=== PATIENT | male | born 1955 | race Caucasian/White ===

== ENCOUNTER 2016-09-10 09:33 | Emergency (ER) | payer OTHER ==
[2016-09-10] MEDS ORDERED: PROTONIX 80 MG in NS 80 ML IV ONE (09:47)
[2016-09-10] MEDS ORDERED: ASPIRIN PO STA (09:48)
[2016-09-10] MEDS ORDERED: NS 1,000 ML IV ONE (09:49)
--- NOTE | 2016-09-10 09:57 | PROVIDER DOCUMENTATION ---
HPI-Chest Pain - General Source: patient - History of Present Illness-CP Location: reports: central Chest Pain Radiation: reports: no radiation Quality of Pain: reports: pressure Severity in ED: mild Onset/Duration: this morning Timing: still present Context/Activities at Onset: reports: light activity Modifying Factors: improves with: nothing Associated Symptoms: reports: diaphoresis, dizziness, fever/chills, nausea. denies: abdominal pain, back pain, edema, fatigue, headache, heartburn, rash, shortness of breath, swelling/lump in chest, syncope, vomiting, weakness Nitro Today/Relief: no nitro taken today Aspirin Treatment Today: no aspirin today Similar Symptoms Previously?: Yes Recently Seen Here or By Another Healthcare Provider: No <Vivian Van - Last Filed: 09/10/16 15:16> <Adebayo Maria - Last Filed: 09/10/16 15:32> - General Chief Complaint: Dizziness Stated Complaint: DIZZINESS, FEVER , CHEST PAIN, DARK STOOLS Time Seen by Provider: 09/10/16 09:46 Allergies/Adverse Reactions: Patient Allergies Allergy/AdvReac Type Severity Reaction Status Date / Time oxycodone AdvReac HEADACHE Verified 04/16/15 06:30 Home Medications: Home Medication List Medication Instructions Recorded Confirmed Last Taken Type LISINOpril [Prinivil] 20 mg PO DAILY 04/16/15 09/10/16 07/23/15 History Metformin [Glucophage] 500 mg PO DAILY 04/16/15 09/10/16 07/23/15 History Aspirin/Calcium Carbonate/Mag 325 mg PO HS 09/10/16 09/10/16 Unknown History [Aspirin Buffered 325 mg Tab] Meloxicam [Mobic] 15 mg PO DAILY 09/10/16 09/10/16 Unknown History - History of Present Illness-CP Nature of Presenting Problem: Pt is 61 y/o M presents to the ED with central chest pain. Pt states started this am. Pt states last night having F and chills. Pt states CP feels like something is sitting on his chest. Pt states having black tarry stool last night as well. Pt states N and dizziness this am. Pt denies SOB. Pt states feeling like his heart rates was elevated this am as well. (Vivian Van) Review of Systems - Adult - REVIEW OF SYSTEMS - ADULT Constitutional: reports: chills, fever Eyes: denies: blurred vision, double vision Ears, Nose, Mouth & Throat: denies: ear pain, nose pain, throat pain Cardiovascular: reports: chest pain (central), irregular heart rate (tachy). denies: heart murmur Respiratory: denies: cough, shortness of breath, wheezing Gastrointestinal: reports: nausea, other (dark stools). denies: abdominal pain , diarrhea, vomiting Genitourinary: denies: dysuria, hematuria Musculoskeletal: denies: bone pain, joint pain, neck pain Integumentary: denies: hives, itching Neurological: reports: dizziness/vertigo (dizziness). denies: headache/ migraines, syncope Psychiatric: denies: anxiety, depression Endocrine: reports: no symptoms reported Hematologic/Lymphatic: reports: no symptoms reported Allergic/Immunologic: reports: no symptoms reported All Other Systems: Reviewed and Negative <Vivian Van - Last Filed: 09/10/16 15:16> Past History - Adult - PAST MEDICAL HISTORY-ADULT Review of Records: reports: Nursing Assessment Review, Medications Reviewed, Social history reviewed & non-contributory. Major Childhood Illnesses: reports: denies history Cardiovascular: reports: cardiac disease, HTN Respiratory: reports: denies history Gastrointestinal: reports: other (explor lap for "Spot" on his intestines) Obstetrical/Gynecological: reports: denies history Genitourinary: reports: kidney stones Musculoskeletal: reports: denies history Neurological: reports: denies history Endocrine/Immune: reports: Diabetes Other Conditions: reports: denies history - PRIOR SURGERIES/PROCEDURES Surgical/Procedure History: reports: CABG, cholecystectomy, orthopedic ( extremity) (L shoulder ) - IMMUNIZATION STATUS Childhood Immunizations: See Nurse Assessment Flu Vaccine: See Nurse Assessment - FAMILY HISTORY Family History: reviewed, not pertinent - SOCIAL HISTORY Smoking: quit greater than 1 year, cigarettes Substance Use: alcohol Alcohol Use Frequency: occasionally Number of drinks per typical drinking period:: 2 drinks Living Situation: family <Vivian Van - Last Filed: 09/10/16 15:16> Physical Exam-General - PHYSICAL EXAM-ADULT Initial Vital Signs Reviewed: Yes - CONSTITUTIONAL General Appearance: appears well, alert, no apparent distress - EYES Eyes: pink conjunctivae - HEAD, EARS, NOSE, MOUTH & THROAT HENMT: normocephalic/atraumatic, moist mucous membranes, normal ENT inspection, TMs normal, pharynx normal - NECK Neck: non-tender, full range of motion, supple, normal inspection - RESPIRATORY Respiratory: chest non-tender, lungs clear, normal breath sounds, no pleuratic chest pain, no respiratory distress, no accessory muscle use - CARDIOVASCULAR Cardiovascular: normal peripheral pulses, no edema, no gallop, no JVD, no murmur , tachycardia - GASTROINTESTINAL (ABDOMEN) Abdominal Exam: normal bowel sounds, soft, no organomegaly, no pulsatile mass, tenderness (suprapubic and LLQ) - LYMPHATIC Lymphatic: no adenopathy - MUSCULOSKELETAL Back Exam: normal inspection, no CVA tenderness, no vertebral tenderness Extremity: normal range of motion, non-tender, no pedal edema, no calf tenderness - SKIN Integumentary: normal color, normal turgor, warm/dry - NEUROLOGIC Neurologic: grossly normal - PSYCHIATRIC Psych/Mental Status: normal mood/affect, oriented x 3 <Vivian Van - Last Filed: 09/10/16 15:16> Progress - REASSESSMENT Reassessment #1 Time Reassessed: 11:25 (Dr. Maria at bedside with Pt ) Status: improving (Pt states when he went to xray and stood up he became lightheaded.) Reassessment Comment: Pt states he is chest pain free at the moment - EKG 1 Time of EKG reading by physician:: 09:30 EKG Read and Signed by:: Adebayo Maria EKG Interpretation (*Must complete 3 of following elements*): Abnormal Rate: 111 Rhythm: sinus tachycardia Comments: left anterior fascicular block; septal infarct, age undetermined - XRAY 1 XRAY: Bilateral XRAY Study: Chest Impression: Normal XRAY Interpretation: nad - CONSULTS/PCP/HOSPITALIST Notification #1 *Consult/PCP/Hospitalist*: Dr. Cee Time Discussed: 15:16 (Dr. Cee accepted admit ) Reason/Comments: Dr. Maria consults with Dr. Cee about admit of Pt Consult Disposition: Admit <Vivian Van - Last Filed: 09/10/16 15:16> <Adebayo Maria - Last Filed: 09/10/16 15:32> - PLAN OF CARE/RESULTS Progress/Plan/Lab Results: Laboratory Tests 09/10/16 09:52 POC Glucose 142 H Orders Category Date Time Status Cardiac Monitoring DIRECTED Care 09/10/16 09:48 Active Oxygen Therapy- ED Nursing DIRECTED Care 09/10/16 09:48 Active Saline Loc NOW Care 09/10/16 09:48 Active CHEST-2 VIEWS [RAD] Stat Exams 09/10/16 09:48 Ordered CBC WITH ELECTRONIC DIFF [HEME] Stat Lab 09/10/16 09:48 Ordered CK PROFILE [SP CHEM] Stat Lab 09/10/16 09:48 Ordered COMPREHENSIVE METABOLIC PANEL [CHEM] Stat Lab 09/10/16 09:48 Ordered MAGNESIUM [CHEM] Stat Lab 09/10/16 09:48 Ordered PRO B-NATRIURETIC PEPTIDE Stat Lab 09/10/16 09:[address] Or[address]IME WITH INR PL [COAG] Stat Lab 09/10/16 09:[address] [COAG] Stat Lab 09/10/16 09:48 Ordered TROPONIN T Stat Lab 09/10/16 09:48 Ordered 0.9% Sodium Chloride Inj [Ns] 1,000 ml Med 09/10/16 09:49 Active IV 75 mls/hr Aspirin Med 09/10/16 09:48 Discontinued 325 mg PO STAT STA Pantoprazole [Protonix] 80 mg Med 09/10/16 09:47 Active 0.9% Sodium Chloride Inj [Ns] 80 ml IV NOW EKG [EKG] Stat Ther 09/10/16 09:48 Ordered Vital Signs - 24 hr 09/10/16 09/10/16 09:35 09:46 Pulse Rate 111 H 103 H Respiratory 20 16 Rate Blood Pressure 140/105 115/85 O2 Sat by Pulse 98 99 Oximetry Laboratory Tests 09/10/16 09/10/16 09/10/16 09:50 09:50 09:50 WBC RBC Hgb Hct MCV MCH MCHC RDW Std Deviation Plt Count MPV Immature Gran % (Auto) Neut % (Auto) Lymph % (Auto) [place] % (Auto) Eos % (Auto) Baso % (Auto) Immature Gran # (Auto) Neut # (Auto) Lymph # (Auto) [place]gett # (Auto) Eos # (Auto) Baso # (Auto) PT INR APTT (Factor Assay) Sodium 137 Potassium 4.9 Chloride 101 Carbon Dioxide 26 Anion Gap 11 BUN 40 H Creatinine 1.1 Estimated GFR/1.73 m2 > 60 BUN/Creatinine Ratio 36 Glucose 170 H POC Glucose Calculated Osmolality 288 Calcium 11.2 H Magnesium 2.0 Total Bilirubin 0.40 AST 33 ALT 47 H Alkaline Phosphatase 76 Creatine Kinase 280 H Troponin T < 0.010 [id number]-Kszvyaudatd Pept 30 Total Protein 7.2 Albumin 4.7 Globulin 3.0 Albumin/Globulin Ratio 2.0 09/10/16 09/10/16 09/10/16 09:50 09:50 09:52 WBC 13.00 H RBC 5.12 Hgb 15.0 Hct 44.1 MCV 86.1 MCH 29.3 MCHC 34.0 RDW Std Deviation 14.9 H Plt Count 244 MPV 11.5 H Immature Gran % (Auto) 2.9 H Neut % (Auto) 69.5 Lymph % (Auto) 18.8 L [place] % (Auto) 6.5 Eos % (Auto) 1.8 Baso % (Auto) 0.5 Immature Gran # (Auto) 0.38 H Neut # (Auto) 9.02 H Lymph # (Auto) 2.45 Daggett # (Auto) 0.85 H Eos # (Auto) 0.24 Baso # (Auto) 0.06 PT 14.1 INR 1.06 APTT (Factor Assay) 24.8 Sodium Potassium Chloride Carbon Dioxide Anion Gap BUN Creatinine Estimated GFR/1.73 m2 BUN/Creatinine Ratio Glucose POC Glucose 142 H Calculated Osmolality Calcium Magnesium Total Bilirubin AST ALT Alkaline Phosphatase Creatine Kinase Troponin T Puk-[id number]-Zlotudntsle Pept Total Protein Albumin Globulin Albumin/Globulin Ratio Laboratory Tests 09/10/16 09/10/16 09/10/16 09:50 09:50 09:50 WBC RBC Hgb Hct MCV MCH MCHC RDW Std Deviation Plt Count MPV Immature Gran % (Auto) Neut % (Auto) Lymph % (Auto) Daggett % (Auto) Eos % (Auto) Baso % (Auto) Immature Gran # (Auto) Neut # (Auto) Lymph # (Auto) Daggett # (Auto) Eos # (Auto) Baso # (Auto) PT INR APTT (Factor Assay) Sodium 137 Potassium 4.9 Chloride 101 Carbon Dioxide 26 Anion Gap 11 BUN 40 H Creatinine 1.1 Estimated GFR/1.73 m2 > 60 BUN/Creatinine Ratio 36 Glucose 170 H POC Glucose Calculated Osmolality 288 Calcium 11.2 H Magnesium 2.0 Total Bilirubin 0.40 AST 33 ALT 47 H Alkaline Phosphatase 76 Creatine Kinase 280 H Creatine Kinase Index 6.8 H CK-MB (CK-2) 19.14 H Troponin T < 0.010 [id number]-Jdirkwqrndf Pept 30 Total Protein 7.2 Albumin 4.7 Globulin 3.0 Albumin/Globulin Ratio 2.0 09/10/16 09/10/16 09/10/16 09:50 09:50 09:52 WBC 13.00 H RBC 5.12 Hgb 15.0 Hct 44.1 MCV 86.1 MCH 29.3 MCHC 34.0 RDW Std Deviation 14.9 H Plt Count 244 MPV 11.5 H Immature Gran % (Auto) 2.9 H Neut % (Auto) 69.5 Lymph % (Auto) 18.8 L [place] % (Auto) 6.5 Eos % (Auto) 1.8 Baso % (Auto) 0.5 Immature Gran # (Auto) 0.38 H Neut # (Auto) 9.02 H Lymph # (Auto) 2.45 Daggett # (Auto) 0.85 H Eos # (Auto) 0.24 Baso # (Auto) 0.06 PT 14.1 INR 1.06 APTT (Factor Assay) 24.8 Sodium Potassium Chloride Carbon Dioxide Anion Gap BUN Creatinine Estimated GFR/1.73 m2 BUN/Creatinine Ratio Glucose POC Glucose 142 H Calculated Osmolality Calcium Magnesium Total Bilirubin AST ALT Alkaline Phosphatase Creatine Kinase Creatine Kinase Index CK-MB (CK-2) Troponin T Cnx-H-Slyargsgxff Pept Total Protein Albumin Globulin Albumin/Globulin Ratio 09/10/16 09/10/16 12:44 12:44 WBC RBC Hgb Hct MCV MCH MCHC RDW Std Deviation Plt Count MPV Immature Gran % (Auto) Neut % (Auto) Lymph % (Auto) Daggett % (Auto) Eos % (Auto) Baso % (Auto) Immature Gran # (Auto) Neut # (Auto) Lymph # (Auto) Daggett # (Auto) Eos # (Auto) Baso # (Auto) PT INR APTT (Factor Assay) Sodium Potassium Chloride Carbon Dioxide Anion Gap BUN Creatinine Estimated GFR/1.73 m2 BUN/Creatinine Ratio Glucose POC Glucose Calculated Osmolality Calcium Magnesium Total Bilirubin AST ALT Alkaline Phosphatase Creatine Kinase 211 H Creatine Kinase Index 7.4 H CK-MB (CK-2) 15.55 H Troponin T < 0.010 Ycj-V-Kkthmshuoux Pept Total Protein Albumin Globulin Albumin/Globulin Ratio Vital Signs - 24 hr 09/10/16 09/10/16 09/10/16 09:35 09:46 11:36 Temperature Pulse Rate 111 H 103 H 75 Pulse Rate [ Sitting] Pulse Rate [ Standing] Pulse Rate [ Supine] Respiratory 20 16 16 Rate Blood Pressure 140/105 115/85 103/66 Blood Pressure [Sitting] Blood Pressure [Standing] Blood Pressure [Supine] O2 Sat by Pulse 98 99 99 Oximetry 09/10/16 09/10/16 09/10/16 12:15 13:03 13:36 Temperature 97.5 F L Pulse Rate 76 86 103 H Pulse Rate [ Sitting] Pulse Rate [ Standing] Pulse Rate [ Supine] Respiratory 15 12 15 Rate Blood Pressure 103/58 123/75 117/84 Blood Pressure [Sitting] Blood Pressure [Standing] Blood Pressure [Supine] O2 Sat by Pulse 98 100 98 Oximetry 09/10/16 09/10/16 14:15 14:46 Temperature Pulse Rate 105 H Pulse Rate [ 127 H Sitting] Pulse Rate [ 140 H Standing] Pulse Rate [ 113 H Supine] Respiratory 11 L Rate Blood Pressure 133/84 Blood Pressure 123/79 [Sitting] Blood Pressure 103/74 [Standing] Blood Pressure 128/83 [Supine] O2 Sat by Pulse 98 Oximetry (Vivian Van) Departure <Vivian Van - Last Filed: 09/10/16 15:16> - Departure Time of Disposition Order: 15:31 Certified Medical Emergency: Emergent <Adebayo Maria - Last Filed: 09/10/16 15:32> - Departure DIAGNOSIS: GI bleed Qualifiers: GI bleed type/associated pathology: unspecified gastrointestinal hemorrhage type Qualified Code(s): K92.2 - Gastrointestinal hemorrhage, unspecified Disposition: [facility] 02 Condition: Good Referrals: William Nash MD [Primary Care Provider] - Attestation - Scribe Verification/Attestation Scribe:: Vivian Van Acting as Scribe for:: Adebayo Maria Scribe documention review:: This chart was documented by a scribe and accurately reflects the service the provider performed and the decisions made by the provider. <Vivian Van - Last Filed: 09/10/16 15:16> Physician Attestation - Physician Attestation I, the provider, attest to the following statement:: Adebayo Maria Physician documentation Attestation:: This documentation recorded by the scribe accurately reflects the service I personally performed and the decisions made by me. <Adebayo Maria - Last Filed: 09/10/16 15:32>
[2016-09-10 10:04] LABS: MANUAL DIFF NEEDED? NO
[2016-09-10 10:07] LABS: BASO% 0.5 % (0.0-0.8); EOS# 0.24 X1000 (0.0-0.7); EOS% 1.8 % (0.0-10.0); HEMATOCRIT 44.1 % (42.0-52.0); IMM GRAN# 0.38 X1000 (0.0-0.04); IMM GRAN% 2.9 % (0.0-0.5); LYMPH# 2.45 X1000 (1.2-3.4); LYMPH% 18.8 % (20.5-51.1); MCH 29.3 PG (27-31); MCV 86.1 FL (81-99); MONO# 0.85 X1000 (0.11-0.59); MONO% 6.5 % (1.7-9.3); MPV 11.5 FL (7.4-10.4); NEUT% 69.5 % (42.2-75.2); PLT 244 X1000 (130-400); RBC 5.12 XMIL (4.7-6.1)
--- NOTE | 2016-09-10 10:25 | EKG Report ---
Test Performed on : 09/10/2016 09:30:19 AM Test Reason : CHEST PAIN Blood Pressure : / mmHG Vent. Rate : 111 BPM Atrial Rate : 111 BPM P-R Int : 168 ms QRS Dur : 088 ms QT Int : 316 ms P-R-T Axes : 061 -58 078 degrees QTc Int : 429 ms Sinus tachycardia. Left anterior fascicular block Septal infarct , age undetermined Abnormal ECG No previous ECGs available Unconfirmed Result
[2016-09-10 10:26] LABS: INR 1.06 (0.86-1.15); PROTIME 14.1 Seconds (12.1-15.5); PTT PL 24.8 Seconds (22.6-43.9)
[2016-09-10 10:28] LABS: AGAP 11; ALBUMIN 4.7 g/dL (3.5-5.0); ALKALINE PHOSPHATASE 76 U/L (32-122); BUN 40 mg/dL (8-22); CALCIUM 11.2 mg/dL (8.8-10.2); CHLORIDE 101 mmol/L (98-107); COSMO 288; GOT 33 U/L (10-34); GPT 47 U/L (10-44); POTASSIUM 4.9 mmol/L (3.5-5.1); SODIUM 137 mmol/L (136-145); TCO2 26 mmol/L (25-35); TOTAL PROTEIN 7.2 g/dL (6.3-8.3)
[2016-09-10 10:30] LABS: CK PROFILE 280 U/L (24-204)
--- NOTE | 2016-09-10 10:41 | Diag Imaging Result Document ---
PROCEDURE NAME: CHEST-2 VIEWS - 09/10/2016 TWO VIEWS OF THE CHEST: FINDINGS: There are sternotomy wires. There is severe degenerative disk disease at the L1-2 level, producing accentuated degree of kyphosis. No evidence of acute pulmonary disease is present and there are no previous studies available for comparison. IMPRESSION: No acute disease.
[2016-09-10 10:48] LABS: CK INDEX 6.8 (0.0-2.5); CK-MB 19.14 ng/mL (0.0-5.0)
[2016-09-10 13:48] LABS: CK INDEX 7.4 (0.0-2.5); CK-MB 15.55 ng/mL (0.0-5.0)
[2016-09-10 14:46] VITALS: BP 128/83
[2016-09-10] MEDS ORDERED: PROTONIX 80 MG in NS 80 ML IV SCH (15:00)
[2016-09-10 15:23] LABS: HEMATOCRIT 40.3 % (42.0-52.0); HEMOGLOBIN 13.8 g/dL (14.0-18.0)
== END 2016-09-10 15:55 | disposition short-term general hospital (02) ==
LOC: P.ED 09:33
DX: K92.2 Gastrointestinal hemorrhage, unspecified (principal); R94.31 Abnormal electrocardiogram [ECG] [EKG]; R07.89 Other chest pain; R61 Generalized hyperhidrosis; R42 Dizziness and giddiness; R50.9 Fever, unspecified; R11.0 Nausea; R19.5 Other fecal abnormalities; R00.0 Tachycardia, unspecified; R10.819 Abdominal tenderness, unspecified site; R10.814 Left lower quadrant abdominal tenderness; I10 Essential (primary) hypertension; E11.9 Type 2 diabetes mellitus without complications; Z79.82 Long term (current) use of aspirin; Z79.899 Other long term (current) drug therapy; Z87.442 Personal history of urinary calculi; Z95.1 Presence of aortocoronary bypass graft; Z87.891 Personal history of nicotine dependence
CPT/HCPCS: 36415; 71020; 80053; 82550; 82553; 82948; 83735; 83880; 84484; 85014; 85018; 85025; 85610; 85730; 93005; C9113; J7030; S0164